=== PATIENT | female | born 1990 | race Two or more races ===

== ENCOUNTER → 2020-10-26 | Outpatient (CLI) | payer OTHER | END | disposition home or self-care (01) | LOC: CVU 09:32 | PROVIDERS: ATTEND Internal Medicine Cardiovascular Disease | DX: R00.2 Palpitations (principal) | CPT/HCPCS: 93306; 93356 ==

== ENCOUNTER 2020-11-02 01:54 | Inpatient (IN) | payer OTHER ==
[~2020-11-02] VITALS: Ht 152.4 cm; Wt 63.6 kg
[2020-11-02] MEDS ORDERED: NEWBORN KIT ONE (02:16)
[2020-11-02] MEDS ORDERED: OXYTOCIN 30U/ 0.9% NaCL 500ML 500 ML ONE (02:16)
[2020-11-02] MEDS ORDERED: MISOPROSTOL 200 MCG TABLET ONE (02:16)
[2020-11-02] MEDS ORDERED: LIDOCAINE 1%, 20ML ONE (02:16)
[2020-11-02] MEDS ORDERED: TERBUTALINE 1 MG/ML, 1ML SQ PRN (02:30)
[2020-11-02] MEDS: LACTATED RINGERS 1,000 ML IV SCH ×4 (02:30→23:14)
[2020-11-02] MEDS ORDERED: ONDANSETRON 2MG/ML, 2ML IVPush PRN (02:30)
[2020-11-02] MEDS ORDERED: FENTANYL PF 100 MCG/2ML IV PRN (02:30)
[2020-11-02] MEDS ORDERED: OXYTOCIN 30U/ 0.9% NaCL 500ML 500 ML IV ONE (02:30)
[2020-11-02] MEDS ORDERED: TERBUTALINE 1 MG/ML, 1ML IVPush PRN (02:30)
[2020-11-02] MEDS ORDERED: FENTANYL PF 100 MCG/2ML IVPush PRN (02:30)
[2020-11-02] MEDS ORDERED: FENTANYL PF 100 MCG/2ML ONE (02:33)
[2020-11-02 02:43] LABS: BASOPHILS % (AUTO) 0 % (0-1); EOSINOPHILS % (AUTO) 1 % (1-7); LYMPHOCYTES % (AUTO) 21 % (22-44); MEAN CORPUSCULAR HEMOGLOBIN 32.2 pg (27.0-34.8); MEAN CORPUSCULAR HGB CONC 33.7 g/dL (32.4-35.8); MEAN PLATELET VOLUME 10.3 fL (7.4-10.4); MONOCYTES % (AUTO) 6 % (2-9); NEUTROPHILS % (AUTO) 73 % (42-75); PLATELET COUNT 168 x10^3/uL (130-400); RED BLOOD COUNT 4.07 x10^6/uL (3.82-5.3); RED CELL DISTRIBUTION WIDTH 14.1 % (9.6-15.2)
[2020-11-02 02:44] LABS: MD NO
[2020-11-02] MEDS ORDERED: PLEASE ENTER ALLERGIES MC SCH (03:00)
[2020-11-02] MEDS ORDERED: FENTANYL/BUPIV./NS/PF 250 ML EPIDCONT ONE (04:07)
[2020-11-02] MEDS ORDERED: BUPIVACAINE 0.25% ONE (04:07)
[2020-11-02] MEDS ORDERED: SIMETHICONE 80 MG CHEW TAB PO PRN (10:30)
[2020-11-02] MEDS ORDERED: ONDANSETRON 2MG/ML, 2ML IV PRN (10:30)
[2020-11-02] MEDS ORDERED: ACETAMINOPHEN 325 MG TABLET PO PRN ×2 (10:30)
[2020-11-02] MEDS ORDERED: CALCIUM CARBONATE 500 MG TAB.CHEW PO PRN (10:30)
[2020-11-02] MEDS ORDERED: MISOPROSTOL 200 MCG TABLET PR PRN (10:30)
[2020-11-02] MEDS ORDERED: OXYTOCIN 30U/ 0.9% NaCL 500ML 500 ML IV SCH (10:30)
[2020-11-02] MEDS ORDERED: DOCUSATE 100 MG CAPSULE PO PRN (10:30)
[2020-11-02] MEDS ORDERED: HYDROcodone/APAP 5/325 TABLET PO PRN (10:30)
[2020-11-02 12:10] VITALS: BP 105/67
[2020-11-02] MEDS: IBUPROFEN 600 MG TABLET PO PRN ×2 (12:10→18:23)
[2020-11-02] MEDS: OXYTOCIN 30U/ 0.9% NaCL 500ML 500 ML IV SCH ×3 (12:11→23:14)
[2020-11-02 15:21] VITALS: BP 93/54
[2020-11-02 18:01] LABS: BASOPHILS % (AUTO) 0 % (0-1); EOSINOPHILS % (AUTO) 0 % (1-7); LYMPHOCYTES % (AUTO) 10 % (22-44); MEAN CORPUSCULAR HEMOGLOBIN 32.3 pg (27.0-34.8); MEAN PLATELET VOLUME 10.7 fL (7.4-10.4); MONOCYTES % (AUTO) 6 % (2-9); NEUTROPHILS % (AUTO) 84 % (42-75); PLATELET COUNT 142 x10^3/uL (130-400); RED BLOOD COUNT 3.52 x10^6/uL (3.82-5.3); RED CELL DISTRIBUTION WIDTH 14.1 % (9.6-15.2)
[2020-11-02 18:05] LABS: MD NO
[2020-11-02 20:02] VITALS: BP 102/66
[2020-11-02] MEDS: HYDROcodone/APAP 5/325 TABLET PO PRN (20:09)
[2020-11-03 00:10] VITALS: BP 93/60
[2020-11-03] MEDS: HYDROcodone/APAP 5/325 TABLET PO PRN ×4 (00:11→17:01)
[2020-11-03] MEDS: IBUPROFEN 600 MG TABLET PO PRN ×2 (02:59→12:15)
[2020-11-03 03:15] VITALS: BP 94/61
[2020-11-03] MEDS: OXYTOCIN 30U/ 0.9% NaCL 500ML 500 ML IV SCH (04:37)
[2020-11-03 07:05] VITALS: BP 97/64
[2020-11-03] MEDS ORDERED: HYDR-2214 PO (07:46)
[2020-11-03] MEDS ORDERED: PRENATAL VIT/IRON/FA 1 EACH TABLET PO SCH (09:00)
== END 2020-11-03 18:38 | disposition home or self-care (01) | DRG 807 ==
LOC: LDOP 01:54 → LDIP 02:16 → 2NW 12:14
PROVIDERS: ADMIT Obstetrics & Gynecology; ATTEND Obstetrics & Gynecology
PROC: 10E0XZZ Delivery of Products of Conception, External Approach (ICD-10-PCS; principal; 2020-11-03)
PROC: 3E0R3BZ Introduction of Anesthetic Agent into Spinal Canal, Percutaneous Approach (ICD-10-PCS; 2020-11-03)
PROC: 00HU33Z Insertion of Infusion Device into Spinal Canal, Percutaneous Approach (ICD-10-PCS; 2020-11-03)
DX: O62.9 Abnormality of forces of labor, unspecified (principal); Z37.0 Single live birth; Z3A.40 40 weeks gestation of pregnancy; Z20.822 Contact with and (suspected) exposure to COVID-19; Z82.49 Family history of ischemic heart disease and other diseases of the circulatory system; Z83.3 Family history of diabetes mellitus
CPT/HCPCS: 36415; 85025; 86592; 86850; 86900; 87635; G0378; J3010; J2590